=== PATIENT | female | born 1980 | race Two or more races ===

== ENCOUNTER → 2024-07-11 | Day surgery (SDC) | payer OTHER ==
[~2024-07-11] VITALS: Ht 165.1 cm; Wt 99.3 kg
[~2024-07-11] MED LIST: ATOR20TA PO; CHOL500046 PO; DexAMETHasone SOD PHOS 10MG/1ML VIAL INJ ONE; GABA-1250 PO; MEPERIDINE HCL (25 MG/ML) 1ML VIAL ONE; MIDAZOLAM HCL 2MG/2ML 2ml VIAL (1mg/ml) ONE; PROPOFOL 10 MG/ML 20 ML IV ONE; SEMA0.25 SC; [UNRECOGNIZED DRUG - CODE] IV; fentaNYL CITRATE 100 MCG/2 ML VL ONE
[2024-07-11 11:48] VITALS: TEMP 98.9; O2SAT 99
[2024-07-11 12:18] VITALS: BP 105/51; PULSE 71; RESP 15; O2SAT 97
== END | disposition home or self-care (01) ==
LOC: GI 08:57
PROVIDERS: ATTEND Internal Medicine Gastroenterology
DX: Z12.11 Encounter for screening for malignant neoplasm of colon (principal); K57.30 Diverticulosis of large intestine without perforation or abscess without bleeding; I10 Essential (primary) hypertension; F17.210 Nicotine dependence, cigarettes, uncomplicated; E66.01 Morbid (severe) obesity due to excess calories; Z68.36 Body mass index [BMI] 36.0-36.9, adult; Z98.891 History of uterine scar from previous surgery; Z88.0 Allergy status to penicillin; Z88.8 Allergy status to other drugs, medicaments and biological substances; Z98.890 Other specified postprocedural states; Z79.899 Other long term (current) drug therapy
CPT/HCPCS: 45378; 81025; J1100; J2175; J2250; J2704; J3010; J7030

== ENCOUNTER 2024-07-12 10:30 | Emergency (ER) | payer MEDICAID, OTHER ==
[~2024-07-12] VITALS: Ht 165.1 cm; Wt 99.5 kg
[~2024-07-12 10:30] MED LIST changes: -DexAMETHasone SOD PHOS 10MG/1ML VIAL INJ ONE; -MEPERIDINE HCL (25 MG/ML) 1ML VIAL ONE; -MIDAZOLAM HCL 2MG/2ML 2ml VIAL (1mg/ml) ONE; -PROPOFOL 10 MG/ML 20 ML IV ONE; -fentaNYL CITRATE 100 MCG/2 ML VL ONE
[2024-07-12 10:45] VITALS: BP 143/77; TEMP 98.3
[2024-07-12 10:50] VITALS: PULSE 96
[2024-07-12] MEDS: ASPirin 81 mg TAB PO ONE (11:03)
[2024-07-12 11:05] LABS: Basophils # (auto) 0 10 ^3/uL (0-0.2); Basophils % (auto) 0.2 % (0.0-2.0); Eosinophils # (auto) 0 10 ^3/uL (0-0.8); Hematocrit 44.4 % (36.0-46.0); Hemoglobin 15.2 g/dL (12.2-16.2); Lymphocytes % (auto) 4.7 % (10.0-50.0); Mean Corpuscular Hemoglobin 32.5 pg (28.0-32.0); Mean Corpuscular Hgb Conc. 34.2 g/dL (32.0-36.0); Monocytes # (auto) 1.1 10 ^3/uL (0-1.3); Monocytes % (auto) 5.5 % (0.0-12.0); Neutrophils # (auto) 18.2 10 ^3/uL (1.6-8.6); Neutrophils % (auto) 89.6 % (37.0-80.0); Nucleated Red Blood Cells % 0.1 %; Platelet Count (auto) 314 10^3/uL (140-450); Red Blood Cells 4.67 10^6/uL (4.0-5.20); Red Cell Distribution Width 14.2 % (11.8-14.3); White Blood Cell 20.3 10^3/uL (4.4-10.8)
[2024-07-12 11:26] LABS: Chloride 111 mmol/L (98-107); Potassium 4.3 mmol/L (3.5-5.1); Sodium 141 mmol/L (136-145)
[2024-07-12 11:27] LABS: Anion Gap 6 (5-15); Calcium 10.5 mg/dL (8.7-10.4); Carbon Dioxide 24 mmol/L (20-31)
[2024-07-12 11:32] LABS: BUN/Creatinine Ratio 11.3 (10.0-20.0); Blood Urea Nitrogen 9 mg/dL (9-23); Glucose 106 mg/dL (74-106)
[2024-07-12 11:44] VITALS: RESP 17; O2SAT 98
[2024-07-12 13:42] LABS: Urine Bacteria FEW /hpf (None Seen); Urine Blood TRACE /uL (Negative); Urine Clarity Clear (Clear); Urine Color Light-Yellow (Yellow); Urine Mucus FEW (None Seen); Urine Protein, UAD Negative (Negative); Urine Specific Gravity 1.008 (1.001-1.035); Urine Urobilinogen Normal (Negative); Urine WBC <1 /hpf (0 - 5); Urine pH 5.5 (5.0-9.0)
== END 2024-07-12 13:58 | disposition home or self-care (01) ==
LOC: ER 10:30
DX: R07.89 Other chest pain (principal); R51.9 Headache, unspecified; F17.210 Nicotine dependence, cigarettes, uncomplicated; Z12.11 Encounter for screening for malignant neoplasm of colon; Z79.899 Other long term (current) drug therapy; Z98.890 Other specified postprocedural states; Z88.0 Allergy status to penicillin
CPT/HCPCS: 36415; 71046; 80048; 81001; 84484; 85025; 93005